=== PATIENT | female | born 1985 | race Two or more races ===

== ENCOUNTER 2023-11-20 08:02 | Emergency (ER) | payer OTHER ==
[~2023-11-20] VITALS: Ht 167.6 cm; Wt 65.5 kg
[2023-11-20 09:11] LABS: Urine Bacteria FEW /hpf (None Seen); Urine Blood 1+ /uL (Negative); Urine Clarity Cloudy (Clear); Urine Color Yellow (Yellow); Urine Protein, UAD 1+ (Negative); Urine Specific Gravity 1.015 (1.001-1.035); Urine Urobilinogen Normal (Negative); Urine WBC 411 /hpf (0 - 5); Urine WBC Clumps PRESENT /hpf (None Seen); Urine pH 6.5 (5.0-9.0)
[2023-11-20] MEDS ORDERED: BACDST PO (09:28)
[2023-11-20] MEDS: cefTRIAXone SOD 1,000 MG VL IM ONE (09:40)
[2023-11-20] MEDS: HYDROcodone-ACET 5/325MG TAB PO ONE (09:41)
[2023-11-20 09:42] VITALS: BP 121/69; PULSE 98; RESP 16; TEMP 98.6; O2SAT 100
== END 2023-11-20 09:28 | disposition home or self-care (01) ==
LOC: ER 08:02
DX: N39.0 Urinary tract infection, site not specified (principal); Z98.890 Other specified postprocedural states
CPT/HCPCS: 81001; 96372; 99283; J0696

== ENCOUNTER 2023-11-24 19:20 | Emergency (ER) | payer OTHER ==
[~2023-11-24] VITALS: Ht 167.6 cm; Wt 64.6 kg
[~2023-11-24 19:20] MED LIST: BACDST PO
[2023-11-24 20:25] LABS: Urine Bacteria None Seen /hpf (None Seen)
[2023-11-24 20:35] LABS: Urine Blood Negative /uL (Negative); Urine Clarity Clear (Clear); Urine Color Yellow (Yellow); Urine Protein, UAD Negative (Negative); Urine Specific Gravity 1.024 (1.001-1.035); Urine Urobilinogen Normal (Negative); Urine WBC 2 /hpf (0 - 5)
[2023-11-24 20:55] LABS: Basophils # (auto) 0 10 ^3/uL (0-0.2); Basophils % (auto) 0.1 % (0.0-2.0); Eosinophils # (auto) 0.1 10 ^3/uL (0-0.8); Eosinophils % (auto) 1.1 % (0.0-7.0); Hematocrit 37.6 % (36.0-46.0); Hemoglobin 13.3 g/dL (12.2-16.2); Lymphocytes # (auto) 0.6 10 ^3/uL (0.4-5.4); Lymphocytes % (auto) 5.3 % (10.0-50.0); Mean Corpuscular Hemoglobin 32.9 pg (28.0-32.0); Mean Corpuscular Hgb Conc. 35.4 g/dL (32.0-36.0); Mean Corpuscular Volume 92.9 fL (80.0-100.0); Monocytes # (auto) 0.5 10 ^3/uL (0-1.3); Monocytes % (auto) 4.1 % (0.0-12.0); Neutrophils # (auto) 10.7 10 ^3/uL (1.6-8.6); Neutrophils % (auto) 89.4 % (37.0-80.0); Nucleated Red Blood Cells % 0.1 %; Red Blood Cells 4.04 10^6/uL (4.0-5.20); Red Cell Distribution Width 12.7 % (11.8-14.3); White Blood Cell 11.9 10^3/uL (4.4-10.8)
[2023-11-24 20:58] LABS: Chloride 104 mmol/L (98-107); Potassium 3.7 mmol/L (3.5-5.1); Sodium 135 mmol/L (136-145)
[2023-11-24 20:59] LABS: Anion Gap 9 (5-15); Carbon Dioxide 22 mmol/L (20-30)
[2023-11-24 21:00] LABS: Calcium 9.7 mg/dL (8.7-10.4)
[2023-11-24 21:04] LABS: BUN/Creatinine Ratio 10.7 (10.0-20.0); Blood Urea Nitrogen 11 mg/dL (9-23); Glucose 150 mg/dL (74-106)
[2023-11-24] MEDS ORDERED: cefTRIAXone 1GM/50ML D5W 50 ML IV ONE (21:30)
[2023-11-24] MEDS ORDERED: CIPR-173 PO (21:36)
[2023-11-24] MEDS: cefTRIAXone SOD 1,000 MG VL ONE (22:44)
[2023-11-24] MEDS: ACETAMINOPHEN 500 MG TAB PO ONE ×2 (22:45→23:15)
[2023-11-24] MEDS: cefTRIAXone W LIDOCAINE 1 GM IM IM ONE (23:15)
[2023-11-24 23:16] VITALS: BP 110/61; PULSE 106; RESP 18; TEMP 98.2; O2SAT 99
== END 2023-11-24 21:37 | disposition home or self-care (01) ==
LOC: ER 19:20
DX: N39.0 Urinary tract infection, site not specified (principal); Z98.890 Other specified postprocedural states; Z79.899 Other long term (current) drug therapy
CPT/HCPCS: 36415; 74176; 80048; 81001; 83605; 85025; 96372; 99285; J0696